=== PATIENT | male | born 1965 | race Caucasian/White ===

== ENCOUNTER → 2017-01-07 | Outpatient (CLI) | payer BC ==
[~2017-01-07] MED LIST: ALLO100T PO; AMLO5TAB2 PO; Lortab Elixir PO; VALS320T PO; lortab elixer
--- NOTE | 2017-01-14 00:14 | SLEEPHOME ---
DATE OF PROCEDURE: 01/07/2017 ORDERED BY: Leola Mukherjee Diagnostic home sleep testing was performed due to concern for the obstructive sleep apnea syndrome in this patient with a history of excessive somnolence and nonrestorative sleep. For testing, a NOX-T3 respiratory monitoring device was used. Continuous record was made of pulse, oxygen saturation, air flow, chest and abdominal strain and body position. 9 hours and 6 minutes of data were reviewed. Of these, 6 hours and 2 minutes were marked as time in bed. During the interval marked time in bed, there were 82 respiratory events identified of 10 seconds in duration or greater for a respiratory event index of 13.6. The events were primarily obstructive. Baseline pulse rate 58 beats per minute. Pulse rate ranged 55 to 64. Baseline saturation 92%. Lowest oxygen saturation reliably recorded was 91%. Testing was performed in both the supine and nonsupine positions. IMPRESSION: Abnormal home sleep testing with repetitive respiratory events and oxygen desaturation to 91% with a respiratory event index of 13.6 is consistent with the obstructive sleep apnea syndrome. RECOMMENDATION: The patient should be encouraged to return to the sleep disorder center for pressure titration. Copy To: Blaze Cole
== END ==
LOC: M SLEEP HO 09:05
PROVIDERS: ATTEND Nurse Practitioner Adult Health
DX: G47.30 Sleep apnea, unspecified (principal)

== ENCOUNTER 2017-09-25 08:51 | Emergency (ER) | payer OTHER, BC ==
[2017-09-25] MEDS: NORCO, ANEXSIA 5/325MG TABLET (HYDROcodone/ACETAMINOPHEN) PO (09:30)
== END 2017-09-25 10:07 | disposition home or self-care (01) ==
LOC: M ED 08:51
DX: S99.912A Unspecified injury of left ankle, initial encounter (principal); X58.XXXA Exposure to other specified factors, initial encounter; Y92.9 Unspecified place or not applicable; Y93.89 Activity, other specified; Y99.0 Civilian activity done for income or pay; I10 Essential (primary) hypertension; M25.772 Osteophyte, left ankle; Z79.899 Other long term (current) drug therapy; Z88.0 Allergy status to penicillin
CPT/HCPCS: 73610

== ENCOUNTER 2018-03-18 08:27 | Day surgery (SDC) | payer BC ==
[~2018-03-18] VITALS: Ht 172.7 cm; Wt 108.6 kg
[~2018-03-18 08:27] MED LIST changes: -AMLO5TAB2 PO; +AMLO5TAB4 PO; +ATOR1TAB21 PO; +NAPR500T6 PO; +NORCOTAB PO; +PROPOFOL 200 MG/20 ML VIAL As Ordered ONE
[2018-03-18] MEDS ORDERED: NS 1,000 ML IV ONE (09:15)
--- NOTE | 2018-03-18 09:24 | ROOR ---
Patient Name: Gopal Espinoza Procedure Date: 03/18/2018 9:08 AM Date of : 1965 Age: 52 Room: [facility] Gender: Male Note Status: Finalized Procedure: Colonoscopy Indications: Screening for colorectal malignant neoplasm Providers: Víctor Castaneda Jr, MD Referring MD: Blaze Cole NP Requesting Provider: Medicines: Propofol per Anesthesia Complications: No immediate complications. Procedure: Pre-Anesthesia Assessment: - Prior to the procedure, a History and Physical was performed, and patient medications and allergies were reviewed. The patient is competent. The risks and benefits of the procedure and the sedation options and risks were discussed with the patient. All questions were answered and informed consent was obtained. Patient identification and proposed procedure were verified by the physician and the nurse in the pre-procedure area and in the procedure room. Mental Status Examination: alert and oriented. Airway Examination: normal oropharyngeal airway and neck mobility. Respiratory Examination: clear to auscultation. CV Examination: normal. ASA Grade Assessment: II - A patient with mild systemic disease. After reviewing the risks and benefits, the patient was deemed in satisfactory condition to undergo the procedure. The anesthesia plan was to use moderate sedation / analgesia (conscious sedation). Immediately prior to administration of medications, the patient was re-assessed for adequacy to receive sedatives. The heart rate, respiratory rate, oxygen saturations, blood pressure, adequacy of pulmonary ventilation, and response to care were monitored throughout the procedure. The physical status of the patient was re-assessed after the procedure. The Colonoscope was introduced through the anus and advanced to the cecum, identified by appendiceal orifice and ileocecal valve. The colonoscopy was performed without difficulty. The patient tolerated the procedure well. The quality of the bowel preparation was adequate. Findings: The rectum, recto-sigmoid colon, sigmoid colon, descending colon, transverse colon, ascending colon, cecum, appendiceal orifice and ileocecal valve appeared normal. Impression: - The rectum, recto-sigmoid colon, sigmoid colon, descending colon, transverse colon, ascending colon, cecum, appendiceal orifice and ileocecal valve are normal. - No specimens collected. Recommendation: - Discharge patient to home (ambulatory). - Repeat colonoscopy in 10 years for screening purposes. Víctor Castaneda MD Víctor Castaneda Jr, MD 03/18/2018 9:24:34 AM This report has been signed electronically. Number of Addenda: 0 Note Initiated On: 03/18/2018 9:08 AM Estimated Blood Loss: Estimated blood loss: none.
[2018-03-18 09:52] VITALS: BP 102/52
== END 2018-03-18 09:54 | disposition home or self-care (01) ==
LOC: M OPP 08:27
PROVIDERS: ATTEND Surgery
DX: Z12.11 Encounter for screening for malignant neoplasm of colon (principal)

== ENCOUNTER 2018-10-21 13:25 | Observation (INO) | payer BC ==
[~2018-10-21] VITALS: Ht 172.7 cm; Wt 104.5 kg
[~2018-10-21 13:25] MED LIST changes: -AMLO5TAB4 PO; +AMLO5TAB6 PO; +HYDR-3715 PO; -NORCOTAB PO; -PROPOFOL 200 MG/20 ML VIAL As Ordered ONE
[2018-10-21 14:13] LABS: BASO % 0.4 % (0.0-1.0); EOS # 0.1 10^3/uL (0.0-0.50); EOS % 0.5 % (0.0-3.0); HEMATOCRIT 39.3 % (42.0-52.0); HEMOGLOBIN 13.6 g/dl (13.5-17.5); LYMPH # 1.6 10^3/uL (1.5-4.5); MEAN CORPUSCULAR HEMOGLOBIN 32.8 pg (27.0-33.0); MEAN CORPUSCULAR HGB CONC 34.6 g/dl (32.0-36.5); MEAN CORPUSCULAR VOLUME 94.7 fl (80.0-96.0); MONO % 9.2 % (0.0-5.0); NEUTROPHILS # 8.4 10^3/uL (1.8-7.7); NEUTROPHILS % 75.5 % (36.0-66.0); PLATELET COUNT, AUTOMATED 339 10^3/uL (150-450); RED BLOOD COUNT 4.15 10^6/uL (4.30-6.10); WHITE BLOOD COUNT 11.2 10^3/uL (4.0-10.0)
[2018-10-21] MEDS ORDERED: NS 500 ML IV ONE ×2 (14:15→15:15)
--- NOTE | 2018-10-21 14:26 | REP ---
CHEST, SINGLE VIEW: There is no evidence of acute infiltrate. No pleural effusion is seen. The heart is normal in size. The mediastinal silhouette is unremarkable. The visualized osseous structures are intact. IMPRESSION: No acute pulmonary disease. Electronically Signed by Rm Frazier MD 10/23/2018 10:20 A
[2018-10-21 14:41] LABS: BLOOD UREA NITROGEN 28 MG/DL (7-18); CALCIUM LEVEL 8.8 MG/DL (8.5-10.1); CARBON DIOXIDE LEVEL 23 MEQ/L (21-32); CHLORIDE LEVEL 105 MEQ/L (98-107); CK-MB VALUE MASS 8.9 NG/ML (<3.6); CPK CREATINE PHOSPHOKINASE 615 U/L (39-308); GLOMERULAR FILTRATION RATE 45.5 (>56); GLUCOSE, FASTING 91 MG/DL (70-100); MB/CK RELATIVE INDEX 1.45 (< OR =4); POTASSIUM SERUM 3.8 MEQ/L (3.5-5.1); SODIUM LEVEL 138 MEQ/L (136-145); TROPONIN I < 0.02 NG/ML (< 0.10)
[2018-10-21] MEDS ORDERED: ALEV220T22 PO (16:03)
[2018-10-21 16:19] LABS: POTASSIUM RANDOM URINE 59.3 MEQ/L
[2018-10-21] MEDS ORDERED: NS 2,000 ML IV ONE (16:30)
--- NOTE | 2018-10-21 17:04 | REP ---
Urinary tract sonogram: History: Acute renal failure. Comparison: No comparison sonography. Findings: Scanning at the level of the urinary bladder shows no abnormality. Renal cortical echogenicity pattern is normal bilaterally and contours are smooth. There is no evidence of hydronephrosis, cyst, mass, or calculus in either kidney. The right kidney measures 14.5 x 4.9 x 6.7 cm. Left renal dimensions are 13.2 x 5.4 x 7.5 cm. Impression: Normal urinary tract sonography. Electronically Signed by Jed Langston MD 10/21/2018 04:56 P
[2018-10-21] MEDS ORDERED: OXAZEPAM 10 MG CAP PO PRN (17:15)
[2018-10-21] MEDS ORDERED: NS 3,000 ML IV ONE (17:30)
--- NOTE | 2018-10-21 17:46 | REPVR ---
EXAM: CT Head Without Contrast EXAM DATE/TIME: 10/21/2018 5:27 PM CLINICAL HISTORY: 53 years old, male; Dizziness; Additional info: Dizziness R/O CVA TECHNIQUE: Imaging protocol: Axial computed tomography images of the head without contrast. Radiation optimization: All CT scans at this facility use at least one of these dose optimization techniques: automated exposure control; mA and/or kV adjustment per patient size (includes targeted exams where dose is matched to clinical indication); or iterative reconstruction. Other technique: STROKE PROTOCOL was implemented. COMPARISON: No relevant prior studies available. FINDINGS: Brain: The fletcher-white differentiation appears preserved. There is no evidence of mass effect area. No evidence of bleed. Ventricles: Normal sized ventricles. Bones/joints: There is no evidence of fracture. Sinuses: Mild mucosal thickening of the ethmoid sinuses. The paranasal sinuses are otherwise clear. Mastoid air cells: Clear mastoid air cells. Soft tissues: There is a small calcification in the scalp on the right. Other findings: There is no evidence of acute stroke. IMPRESSION: 1. No evidence of bleed. 2. No evidence of acute stroke. ASSESSMENT: ASPECTS ([place] Stroke Program Early CT Score) is 10 Electronically signed by: Bradley Hernandez On 10/21/2018 17:46:27 PM
[2018-10-21 18:23] VITALS: BP 125/74
[2018-10-21] MEDS: NS 1,000 ML IV SCH ×2 (18:50→20:53)
[2018-10-21 19:18] VITALS: BP 125/74
--- NOTE | 2018-10-21 19:31 | ECGEPIP ---
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
[2018-10-21] MEDS ORDERED: NS 1,000 ML IV ONE (19:45)
--- NOTE | 2018-10-21 19:46 | HPE ---
DATE OF ADMISSION: 10/21/2018 CHIEF COMPLAINT: Dizziness, lightheadedness. 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 He was found to be hypotensive, with systolic pressure in the 80s. He felt like he could not stand up. No fever or chill, nausea or vomiting. At home, he has had two week history of coughing, white productive sputum that was fairly scant. No sick contacts. He denied any nausea or vomiting, diarrhea, abdominal pain. He admits to not eating all day today, with only a handful of peanuts and a cup and a half of liquids. He was found to be flushed and was given intravenous (IV) fluids in the emergency room (ER) of 2 liters with subsequent increase in blood pressure to 90 mmHg. Patient has had a decrease in appetite for the past two days. He otherwise denies bright red blood per rectum, melena, hematemesis, black tarry stools. Per the , patient woke up as he normally would this morning and usually eats on the road. CT of the head was negative. He was found to be orthostatic, with acute kidney injury with a creatinine of 1.7. Renal ultrasound was negative for obstruction. Cardiac markers were negative. EKG showed sinus rhythm without acute ischemia. Hospitalist was called to admit for orthostatic hypotension, acute kidney injury. He otherwise denies any changes in weight, appetite. He had some difficulty with blurred vision when he felt like he was almost going to pass out while the dizziness was going on. He denied any dysuria, urgency, frequency. He has chronic pain from his meniscal tear. He has not taken any new medications. PAST MEDICAL HISTORY: 1. Hypertension. 2. Hypercholesterolemia. 3. Gout. 4. Meniscal tear. 5. Achilles tear. PAST SURGICAL HISTORY: 1. Rotator cuff surgery. 2. Deviated septum with septoplasty. ALLERGIES: PENICILLIN causing throat swelling. HOME MEDICATIONS: - valsartan/hydrochlorothiazide 320/12.5 - Naprosyn 440 as needed; patient has been taking two tablets daily - amlodipine 5 mg daily - allopurinol 100 mg daily - atorvastatin 20 mg daily FAMILY HISTORY: Father age 69 laryngeal CA and cerebrovascular accident (CVA), who had been a smoker. Mother age 57 with diabetes; unsure of cause of . SOCIAL HISTORY: Patient drinks 6-7 beers every day on the weekends. Nothing daily. No cigarette use. Patient has no recreational drug use. 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 Lives with his at home. REVIEW OF SYSTEMS: A 12-point system negative aside from positive findings from history of present illness (HPI). PHYSICAL EXAMINATION: Temperature 98, pulse 71, respiratory rate 18, blood pressure 83/44, 90% on room air. GENERAL: Patient is awake, alert, oriented times three, able to speak in full sentences. He appears flushed and has erythema on his face. No signs of trauma. No jugular venous distention (JVD), thyromegaly, cervical lymphadenopathy. Dry mucous membranes. SKIN: Is very warm. LUNGS: Clear to auscultation. No wheezing, rales or rhonchi. Air entry is equal bilaterally. HEART: S1, S2. Sinus rhythm. No murmurs, rubs or gallops. ABDOMEN: Obese, soft, nontender, nondistended. Positive bowel sounds. No rebound or guarding. EXTREMITIES: No cyanosis, clubbing or any pitting edema. LABORATORY DATA: White count 11.2, hemoglobin 13, hematocrit 39, platelet count 339, 75% neutrophils. Sodium 138, potassium 3.8, chloride 105, bicarbonate 23, BUN 28, creatinine 1.7, glucose 91, calcium 8.8. Total CK 615. Troponin less than 0.02. Thyroid stimulating hormone (TSH) 2.14. Urine myoglobin is negative. Total protein is 60. Urine sodium of 113. CT of the head was negative. Renal ultrasound was normal. Chest x-ray: No acute cardiopulmonary disease. ASSESSMENT AND PLAN: This is a 53-year-old male who presented with complaints of dizziness found to be orthostatic with acute kidney injury. Patient will be admitted for observation for the following issues: 1. Orthostatic hypotension in the setting of dehydration with decreased oral intake and continued use of valsartan/hydrochlorothiazide and amlodipine. Patient has developed acute kidney injury due to decreased oral intake. His valsartan/hydrochlorothiazide and amlodipine have been discontinued. He has received 2.5 liters of fluid with urine output still minimal at 295, very concentrated, dark orange, seen at the bedside. Renal ultrasound shows no obstructive uropathy and appears normal. Patient will be continually hydrated and blood pressure medications will be held until his systolic pressure is maintained and patient has no complaints of orthostasis with improvement in his dizziness and lightheadedness. There is no central cause for his dizziness. No cerebrovascular accident (CVA) was noted on the CT of the head. TSH level is within normal level. 2. Acute renal failure secondary to dehydration. Continued use of valsartan, nonsteroidal anti-inflammatory drugs (NSAIDs), hydrochlorothiazide, with decreased perfusion. Patient will be monitored overnight. IV fluids have been given, about 3 liters, and will be continued on maintenance fluids. Renal ultrasound has no obstructive causes, has no kidney stone or benign prostatic hypertrophy (BPH). PSA level has been checked. Patient will be bladder scanned every 4 hours if urine output is less than 30 mL per hour and he will offered a Cosby catheter versus intermittent catheterization if postvoid residual is greater than 350. We will avoid nephrotoxins, renally dose all medications. His valsartan/hydrochlorothiazide will be discontinued for now until blood pressure is maintained and creatinine is back to baseline. 3. Hypercholesterolemia. May resume home dose of Lipitor. Check lipid panel in the morning. 4. History of gout. Continue on allopurinol 100 mg daily. 5. History of alcohol abuse. Delirium tremens precautions. Patient will be monitored and placed on Serax CIWA protocol. 6. Deep venous thrombosis (DVT) prophylaxis with compression stockings and Lovenox low-dose at 30 mg due to renal failure.
[2018-10-21 20:00] VITALS: BP_SYST 106; BP_SYST 117; BP_SYST 122; BP_DIAS 57; BP_DIAS 58; BP_DIAS 64
[2018-10-21 20:27] LABS: C REACTIVE PROTEIN QUANTITATIV 1.21 MG/DL (0.00-0.30)
[2018-10-21 20:58] LABS: ERYTHROCYTE SEDIMENTATION RATE 34 mm/hr (0-20)
[2018-10-21 22:00] VITALS: BP 112/58
[2018-10-21 23:24] LABS: BLOOD UREA NITROGEN 23 MG/DL (7-18); CALCIUM LEVEL 8.1 MG/DL (8.5-10.1); CARBON DIOXIDE LEVEL 28 MEQ/L (21-32); CHLORIDE LEVEL 108 MEQ/L (98-107); CREATININE FOR GFR 1.06 MG/DL (0.70-1.30); GLOMERULAR FILTRATION RATE > 60.0 (>56); GLUCOSE, FASTING 100 MG/DL (70-100); POTASSIUM SERUM 3.8 MEQ/L (3.5-5.1); SODIUM LEVEL 140 MEQ/L (136-145)
[2018-10-22 00:43] VITALS: BP_SYST 106; BP_SYST 118; BP_SYST 119; BP_DIAS 56; BP_DIAS 69
[2018-10-22] MEDS: NS 1,000 ML IV SCH (03:28)
[2018-10-22 05:42] LABS: HEMATOCRIT 36.8 % (42.0-52.0); HEMOGLOBIN 12.4 g/dl (13.5-17.5); MEAN CORPUSCULAR HEMOGLOBIN 32.6 pg (27.0-33.0); MEAN CORPUSCULAR HGB CONC 33.7 g/dl (32.0-36.5); MEAN CORPUSCULAR VOLUME 96.8 fl (80.0-96.0); PLATELET COUNT, AUTOMATED 291 10^3/uL (150-450); WHITE BLOOD COUNT 8.6 10^3/uL (4.0-10.0)
[2018-10-22 05:56] LABS: BLOOD UREA NITROGEN 17 MG/DL (7-18); CARBON DIOXIDE LEVEL 24 MEQ/L (21-32); CHLORIDE LEVEL 110 MEQ/L (98-107); CREATININE FOR GFR 0.82 MG/DL (0.70-1.30); GLOMERULAR FILTRATION RATE > 60.0 (>56); GLUCOSE, FASTING 96 MG/DL (70-100); POTASSIUM SERUM 4.1 MEQ/L (3.5-5.1); SODIUM LEVEL 141 MEQ/L (136-145)
[2018-10-22 06:00] VITALS: BP 115/70
[2018-10-22] MEDS ORDERED: NS 1,000 ML IV ONE (06:45)
[2018-10-22] MEDS ORDERED: ACET-841 PO (06:47)
[2018-10-22] MEDS ORDERED: ALLOPURINOL 100 MG TAB PO SCH (09:00)
[2018-10-22] MEDS ORDERED: ATORVASTATIN 20 MG TAB PO SCH (09:00)
[2018-10-22] MEDS ORDERED: ENOXAPARIN 30 MG/0.3 ML SYR (J1650) SC SCH (09:00)
--- NOTE | 2018-10-22 18:12 | DS.PDOC ---
Discharge Summary General Date of Admission Oct 21, 2018 at 15:37 Date of Discharge October 22, 2018 Discharge Summary DISCHARGE DIAGNOSES: Dehydration due to poor oral intake Acute Kidney injury due to dehydration, NSAID use, valsartan/HCTZ Hypertension. Hypercholesterolemia. Gout. Meniscal tear. Achilles tear. 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 He was found to be hypotensive, with systolic pressure in the 80s. He felt like he could not stand up. No fever or chill, nausea or vomiting. At home, he has had two week history of coughing, white productive sputum that was fairly scant. No sick contacts. He denied any nausea or vomiting, diarrhea, abdominal pain. He admits to not eating all day today, with only a handful of peanuts and a cup and a half of liquids. He was found to be flushed and was given intravenous (IV) fluids in the emergency room (ER) of 2 liters with subsequent increase in blood pressure to 90 mmHg. Patient has had a decrease in appetite for the past two days. He otherwise denies bright red blood per rectum, melena, hematemesis, black tarry stools. Per the , patient woke up as he normally would this morning and usually eats on the road. CT of the head was negative. He was found to be orthostatic, with acute kidney injury with a creatinine of 1.7. Renal ultrasound was negative for obstruction. Cardiac markers were negative. EKG showed sinus rhythm without acute ischemia. Hospitalist was called to admit for orthostatic hypotension, acute kidney injury. He otherwise denies any changes in weight, appetite. He had some difficulty wi th blurred vision when he felt like he was almost going to pass out while the dizziness was going on. He denied any dysuria, urgency, frequency. He has chronic pain from his meniscal tear. He has not taken any new medications. HOSPITAL COURSE: Orthostatic hypotension in the setting of dehydration with decreased oral intake and continued use of valsartan/hydrochlorothiazide and amlodipine. Patient has developed acute kidney injury due to decreased oral intake. His valsartan/hydrochlorothiazide and amlodipine have been discontinued. He has received 2.5 liters of fluid with urine output still minimal at 295, very concentrated, dark orange, seen at the bedside. Renal ultrasound shows no obstructive uropathy and appears normal. Patient will be continually hydrated and blood pressure medications will be held until his systolic pressure is maintained and patient has no complaints of orthostasis with improvement in his dizziness and lightheadedness. There is no central cause for his dizziness. No cerebrovascular accident (CVA) was noted on the CT of the head. TSH level is within normal level. Acute renal failure secondary to dehydration. Continued use of valsartan, nonsteroidal anti-inflammatory drugs (NSAIDs), hydrochlorothiazide, with decreased perfusion. Patient will be monitored overnight. IV fluids have been given, about 3 liters, and will be continued on maintenance fluids. Renal ultrasound has no obstructive causes, has no kidney stone or benign prostatic hypertrophy (BPH). PSA level has been checked. Patient will be bladder scanned every 4 hours if urine output is less than 30 mL per hour and he will offered a Cosby catheter versus intermittent catheterization if postvoid residual is greater than 350. We will avoid nephrotoxins, renally dose all medications. His valsartan/hydrochlorothiazide will be discontinued for now until blood pressure is maintained and creatinine is back to baseline. Hypercholesterolemia. May resume home dose of Lipitor. History of gout. Continue on allopurinol 100 mg daily. History of alcohol abuse. Delirium tremens precautions. Patient will be monitored and placed on Serax [facility] protocol. Deep venous thrombosis (DVT) prophylaxis with compression stockings and Lovenox low-dose at 30 mg due to renal failure. DISCHARGE PHYSICAL EXAMINATION: VITALS: PLS SEE BELOW GENERAL: Patient is awake, alert, oriented times three, able to speak in full sentences. No signs of trauma. No jugular venous distention (JVD), thyromegaly, cervical lymphadenopathy. Dry mucous membranes. SKIN: Is very warm. LUNGS: Clear to auscultation. No wheezing, rales or rhonchi. Air entry is equal bilaterally. HEART: S1, S2. Sinus rhythm. No murmurs, rubs or gallops. ABDOMEN: Obese, soft, nontender, nondistended. Positive bowel sounds. No rebound or guarding. EXTREMITIES: No cyanosis, clubbing or any pitting edema. ADMISSION LABORATORY DATA: White count 11.2, hemoglobin 13, hematocrit 39, platelet count 339, 75% neutrophils. Sodium 138, potassium 3.8, chloride 105, bicarbonate 23, BUN 28, creatinine 1.7, glucose 91, calcium 8.8. Total CK 615. Troponin less than 0.02. Thyroid stimulating hormone (TSH) 2.14. Urine myoglobin is negative. Total protein is 60. Urine sodium of 113. CT of the head was negative. Renal ultrasound was normal. Chest x-ray: No acute cardiopulmonary disease. DISCHARGE LABORATORY DATA,IMAGING STUDIES: PLS SEE BELOW TIME SPENT ON DISCHARGE: 32 MINUTES Vital Signs/I&Os Vital Signs Date Time Temp Pulse Resp B/P (MAP) Pulse Ox O2 Delivery O2 Flow Rate FiO2 10/22/18 06:00 97.7 56 18 115/70 (85) 93 10/21/18 16:30 Room Air 10/21/18 14:45 2.0 I&O- Last 24 Hours up to 6 AM 10/22/18 06:00 Intake Total 4230 ml Output Total 2395 ml Balance 1835 ml Laboratory Data Labs 24H Laboratory Tests 2 10/21/18 22:52: Anion Gap 4L, Glomerular Filtration Rate > 60.0, Lactic Acid Level 1.1, Blood Ur ea Nitrogen 23H, Creatinine 1.06, Sodium Level 140, Potassium Level 3.8, Chloride Level 108H, Carbon Dioxide Level 28, Calcium Level 8.1L, Procalcitonin 0.04 10/22/18 05:20: Anion Gap 7L, Glomerular Filtration Rate > 60.0, Blood Urea Nitrogen 17, Creatinine 0.82, Sodium Level 141, Potassium Level 4.1, Chloride Level 110H, Carbon Dioxide Level 24, Calcium Level 8.0L, Nucleated Red Blood Cells % (auto) 0.0 CBC/BMP Laboratory Tests 10/21/18 22:52 Calcium Level 8.1 L 10/22/18 05:20 Calcium Level 8.0 L, Red Blood Count 3.80 L, Mean Corpuscular Volume 96.8 H, Mean Corpuscular Hemoglobin 32.6, Mean Corpuscular Hemoglobin Concent 33.7, Red Cell Distribution Width 13.0 Discharge Medications Scheduled Acetaminophen (Acetaminophen) 500 Mg Tablet, 500 MG PO Q6H for fever Allopurinol (Allopurinol) 100 Mg Tab, 100 MG PO DAILY, (Reported) Amlodipine Besylate (Amlodipine Besylate) 5 Mg Tab, 5 MG PO DAILY, (Reported) Atorvastatin Calcium (Atorvastatin Calcium) 20 Mg Tab, 20 MG PO DAILY, (Reported ) Valsartan/Hydrochlorothiazide (Valsartan-Hctz 320-12.5 mg Tab) 1 Tab Tab, 1 TAB PO DAILY, (Reported) Allergies Coded Allergies: Penicillins (Verified Allergy, Severe, throat swells, 10/21/18) BERNADINE REDD MD Oct 22, 2018 18:11
== END 2018-10-22 11:15 | disposition home or self-care (01) ==
LOC: M ED 13:25 → EDBD 13:25 → M ED INP 15:37 → INTOOBSV 15:37 → M MSPAV 18:01
PROVIDERS: ADMIT General Practice; ATTEND General Practice
DX: N17.9 Acute kidney failure, unspecified (principal); I95.1 Orthostatic hypotension; E86.0 Dehydration; Z79.1 Long term (current) use of non-steroidal anti-inflammatories (NSAID); Z79.899 Other long term (current) drug therapy; E78.00 Pure hypercholesterolemia, unspecified; M10.9 Gout, unspecified; I10 Essential (primary) hypertension; M23.90 Unspecified internal derangement of unspecified knee; R42 Dizziness and giddiness; R05 Cough; F10.10 Alcohol abuse, uncomplicated; Z88.0 Allergy status to penicillin
CPT/HCPCS: 36415; 70450; 71045; 76775; 80048; 81002; 82550; 82553; 82570; 83605; 83935; 84133; 84145; 84156; 84300; 84443; 84484; 85025; 85027; 85652; 86140; 93005; 93041; 94760; 96360; 96372; 97161; 99285; G0103; J1650

== ENCOUNTER → 2019-07-29 | Outpatient (CLI) | payer BC ==
[~2019-07-29] MED LIST changes: +ACET-841 PO; +ALEV220T22 PO; -VALS320T PO; +VALS320T2 PO
--- NOTE | 2019-08-01 20:53 | SLEEPHOME ---
DATE OF PROCEDURE: 07/29/2019 ORDERED BY: USMAN Carrillo Diagnostic home sleep testing was performed due to concern for the obstructive sleep apnea syndrome in this patient with a history of same. For testing, a nocturnal T3 respiratory monitoring device was used. Continuous record was made of pulse, oxygen saturation, airflow, chest, abdominal strain and body position. 9 hours and 59 minutes of data were reviewed. There were 6 hours and 23 minutes marked as time in bed. During the interval marked time in bed, there were 170 respiratory events identified of 10 seconds in duration or greater for a respiratory event index of 26.6. The events were primarily obstructive. Baseline pulse rate 59, pulse rate ranged 51-84. Baseline saturation 92%, saturations fell to 80%. Testing was performed in both supine and nonsupine positions. IMPRESSION: Abnormal home sleep testing with repetitive respiratory events and oxygen desaturations to 80% with a respiratory event index of 26.6 is consistent with the obstructive sleep apnea syndrome. RECOMMENDATIONS: The patient should be encouraged to undergo a formal sleep evaluation and pressure titration.
== END ==
LOC: M SLEEP HO 14:02
PROVIDERS: ATTEND Nurse Practitioner Adult Health
DX: G47.30 Sleep apnea, unspecified (principal)

== ENCOUNTER → 2020-06-12 | Outpatient (REF) | payer BC ==
[~2020-06-12] MED LIST changes: +AMLO1TAB24 PO; -AMLO5TAB6 PO
== END ==
LOC: M LAB REF 16:22
PROVIDERS: ATTEND Internal Medicine
DX: R53.83 Other fatigue (principal)

== ENCOUNTER → 2021-07-15 | Outpatient (REF) | payer BC | LOC: M LAB REF 12:17 | PROVIDERS: ATTEND Internal Medicine | DX: R53.83 Other fatigue (principal) ==

== ENCOUNTER → 2022-01-15 | Outpatient (REF) | payer OTHER, BC | LOC: M LAB REF 12:11 | PROVIDERS: ATTEND Internal Medicine | DX: R53.83 Other fatigue (principal) ==

== ENCOUNTER → 2023-01-28 | Outpatient (REF) | payer OTHER, BC | LOC: M LAB REF 16:17 | PROVIDERS: ATTEND Internal Medicine | DX: E79.0 Hyperuricemia without signs of inflammatory arthritis and tophaceous disease (principal) ==

== ENCOUNTER → 2023-08-05 | Outpatient (REF) | payer OTHER ==
[2023-08-05 13:44] LABS: URIC ACID 8.1 MG/DL (3.7-9.2)
== END ==
LOC: M LAB REF 12:59
PROVIDERS: ATTEND Internal Medicine
DX: E79.0 Hyperuricemia without signs of inflammatory arthritis and tophaceous disease (principal); R53.83 Other fatigue

== ENCOUNTER → 2024-02-24 | Outpatient (REF) | payer OTHER ==
[~2024-02-24] MED LIST changes: +NAPR-1405 PO; -NAPR500T6 PO
== END ==
LOC: M LAB REF 13:33
PROVIDERS: ATTEND Internal Medicine
DX: R53.83 Other fatigue (principal)